=== PATIENT | female | born 1995 | race American Indian/Alaskan Native ===

== ENCOUNTER 2017-12-18 12:52 | Emergency (ER) | payer OTHER, MEDICAID, SELFPAY ==
--- NOTE | 2017-12-18 12:52 | DI.RAD.S_ITS ---
PROCEDURE: XR ANKLE LT MIN 3V INDICATIONS: left foot swelling probable fracture TECHNIQUE: 3 views of the ankle were acquired. COMPARISON: [facility], CR, XR FOOT LT MIN 3V, 12/18/2017, 12:43. FINDINGS: Bones: There is a subtle fracture of the base of the 5th metatarsal. No additional fractures are evident. Ankle mortise is normally aligned. No suspicious bony lesions. Soft tissues: No tibiotalar joint effusion. Achilles tendon appears normal. IMPRESSION: 5th metacarpal base fracture. Dictated by: Dinesh Palomino M.D. on 12/18/2017 at 12:47 Approved by: Dinesh Palomino M.D. on 12/18/2017 at 12:53
--- NOTE | 2017-12-18 12:52 | DI.RAD.S_ITS ---
PROCEDURE: XR FOOT LT MIN 3V INDICATIONS: left foot injury lateral swelling TECHNIQUE: 3 views of the foot were acquired. COMPARISON: [facility], CR, XR ANKLE LT MIN 3V, 12/18/2017, 12:43. FINDINGS: Bones: No fractures or dislocations. No suspicious bony lesions. Soft tissues: No tibiotalar joint effusion. Achilles tendon appears normal. IMPRESSION: No acute osseous abnormality of the left foot. Dictated by: Dinesh Palomino M.D. on 12/18/2017 at 12:40 Approved by: Dinesh Palomino M.D. on 12/18/2017 at 12:47
[2017-12-18 12:55] VITALS: BP 103/64; PULSE 73; RESP 14; TEMP 37.1; O2SAT 100
[2017-12-18 12:56] VITALS: BP 103/64; PULSE 73; RESP 14; TEMP 37.1; O2SAT 100; BMI 20.7
--- NOTE | 2017-12-18 13:00 | ED.LOWEXIN ---
HPI - Extremity Injury (Lower) General Chief Complaint: Extremity Injury, Lower Stated Complaint: Fell down steps Time Seen by Provider: 12/18/17 13:00 Source: patient and EMS Mode of arrival: EMS Limitations: no limitations History of Present Illness HPI Narrative: Patient is a 22-year-old female presenting with left foot pain. She says she fell down 3 or 4 stairs just prior to arrival. She has some swelling on the left side of her foot no ankle knee or hip pain. There is no bleeding no numbness or tingling. She is currently 6 weeks . complaint: foot injury Related Data Allergies Allergy/AdvReac Type Severity Reaction Status Date / Time No Known Drug Allergies Allergy Verified 12/18/17 12:56 Review of Systems Review of Systems GENERAL: Denies chills,fever HEENT: Denies throat pain RESPIRATORY: Denies dyspnea, cough, wheezing CARDIOVASCULAR: Denies chest pain, palpitations GASTROINTESTINAL: Denies nausea, vomiting MUSCULOSKELETAL: See HPI SKIN: No rash, no laceration, no pruritus NEUROLOGIC: Denies weakness, dizziness, headache, numbness 8 point review of systems is negative except for those stated above and HPI All systems reviewed & are unremarkable except as noted in HPI and below PFSH Social History Smoking Status: Never smoker Exam Initial Vital Signs Initial Vital Signs: Vital Signs Temperature 98.7 F 12/18/17 12:55 Pulse Rate 73 12/18/17 12:55 Respiratory Rate 14 12/18/17 12:55 Blood Pressure 103/64 12/18/17 12:55 Pulse Oximetry 100 12/18/17 12:55 GENERAL: Well-appearing, well-nourished and in no acute distress. CARDIOVASCULAR: peripheral pulses in tact, cap refill <2 sec RESPIRATORY: No respiratory distress, speaks in full sentences without difficulty EXTREMITIES: Normal range of motion, no clubbing or edema. Neurovascularly intact -left foot: Or lateral swelling distal pedal pulse intact warm no ankle deformity no knee deformity no hip pain. NEUROLOGICAL: Cranial nerves II through XII grossly intact. Normal gait and speech. SKIN: Warm, dry, no petechiae, no rashes or lesions. Course Orders Ordered: ED Orders 12/18/17 12:52 XR ankle LT min 3V Stat XR foot LT min 3V Stat Vital Signs - 8 hr 12/18/17 12:55 12/18/17 12:56 12/18/17 13:30 Temperature 98.7 F 98.7 F Pulse Rate 73 73 98 H Respiratory Rate 14 14 Blood Pressure 103/64 Blood Pressure [Right Arm] 103/64 102/58 L Pulse Oximetry 100 100 98 12/18/17 14:43 Temperature Pulse Rate 62 Respiratory Rate 18 Blood Pressure 99/68 Blood Pressure [Right Arm] Pulse Oximetry 99 MDM - Extremity Injury (Lower) Imaging Data ankle x ray: My impression: PROCEDURE: XR ANKLE LT MIN 3V INDICATIONS: left foot swelling probable fracture TECHNIQUE: 3 views of the ankle were acquired. COMPARISON: [facility], , XR FOOT LT MIN 3V, 12/18/2017, 12:43. FINDINGS: Bones: There is a subtle fracture of the base of the 5th metatarsal. No additional fractures are evident. Ankle mortise is normally aligned. No suspicious bony lesions. Soft tissues: No tibiotalar joint effusion. Achilles tendon appears normal. IMPRESSION: 5th metacarpal base fracture. Dictated by: Dinesh Palmoino M.D. on 12/18/2017 at 12:47 left foot x ray: Radiologist's impression: PROCEDURE: XR FOOT LT MIN 3V INDICATIONS: left foot injury lateral swelling TECHNIQUE: 3 views of the foot were acquired. COMPARISON: [facility], , XR ANKLE LT MIN 3V, 12/18/2017, 12:43. FINDINGS: Bones: No fractures or dislocations. No suspicious bony lesions. Soft tissues: No tibiotalar joint effusion. Achilles tendon appears normal. IMPRESSION: No acute osseous abnormality of the left foot. Discharge Plan Departure Patient Disposition: Home, Self-Care Clinical Impression: Fracture of fifth metacarpal bone Discharge Date/Time: 12/18/17 14:45 Interventions: ED Discharge Assessment Last Done: 12/18/17 14:43 Instructions: DI for Foot Fracture Activity Restrictions/Additional Instructions: *You have been diagnosed with a left 5th metacarpal fracture *What to do: This may require surgery. Keep shoe on while active. Use crutches. Ice 20-30 minutes at a time then removed for 30 min or more *Continue to take medications as directed-Tylenol 650 mg every 4-6 hours if needed for pain At your request you're medications have been faxed to *Follow up with your primary care provider in 2-3 days, call Orthopedics today to schedule follow-up appointment in the next 2-5 days *Return to ER if you should have increasing pain, numbness, tingling or any new, worsening or concerning symptoms Referrals: [facility] [Outside]
[2017-12-18 13:30] VITALS: BP 102/58; PULSE 98; O2SAT 98
[2017-12-18 14:43] VITALS: BP 99/68; PULSE 62; RESP 18; O2SAT 99
== END 2017-12-18 14:45 | disposition home or self-care (01) ==
PROVIDERS: Emergency Provider Emergency Medicine
DX: S92.352A Displaced fracture of fifth metatarsal bone, left foot, initial encounter for closed fracture (principal); W10.8XXA Fall (on) (from) other stairs and steps, initial encounter
CPT/HCPCS: 73610; 73630; 99283

== ENCOUNTER 2017-12-24 09:36 | Emergency (ER) | payer OTHER, MEDICAID, SELFPAY ==
[2017-12-24 09:54] VITALS: BP 125/110; PULSE 87; RESP 18; TEMP 36.7; O2SAT 100
--- NOTE | 2017-12-24 09:57 | PC.NURSE ---
7 weeks , , developed lower abdominal throbbing pain with vaginal discharge clear and white with chills and denies vomiting, denies injuries.
[2017-12-24 10:01] VITALS: BP 106/65
[2017-12-24 10:23] LABS: Appearance Urine UA CLOUDY; Bilirubin Urine UA NEGATIVE (NEGATIVE); Color Urine UA YELLOW; Glucose Urine UA NEGATIVE (Normal); Ketones Urine UA NEGATIVE (NEGATIVE); Leukocyte Esterase Urine UA 2+ (NEGATIVE); Nitrite Urine UA Negative (Negative); Occult Blood Urine UA NEGATIVE (Negative); Protein Urine UA NEGATIVE (Negative); Urobilinogen Urine UA 0.2 E.U./dL (0.2)
[2017-12-24 10:27] LABS: Pregnancy Test Urine Positive (Negative)
--- NOTE | 2017-12-24 10:30 | DI.US.S_ITS ---
PROCEDURE: US OB <= 14 WEEKS FETUS INDICATIONS: PAIN, DISCHARGE OUTSIDE/PRIOR DATING DATA: Last menstrual period (LMP): 11/04/17. LMP-based estimated date of delivery (BUFFY): 08/11/18. First dating scan (date and location): 12/24/17. Estimated date of delivery (BUFFY) from first dating scan: 08/10/18. TECHNIQUE: Real-time scanning was performed of the fetus and maternal pelvic organs, with image documentation. COMPARISON: None. FINDINGS: Embryo: Single intrauterine gestational sac is identified with a pole well-visualized that measures 1.1 cm in length, correlating to an estimated gestational age of 7 weeks 2 days (BUFFY of 08/10/18). heart motion is detected at 141 beats per minute. A yolk sac is well-visualized and appears to be within normal limits. No subchorionic hemorrhage is identified. Measurement variability in dating: +/- 4 weeks by LMP, +/- 7 days by mean sac diameter (use before 6 weeks gestation if crown-rump length not able to be measured), +/- 5 days by crown-rump length (up to 8 weeks 6 days gestation), +/- 7 days by crown-rump length (up to 13 weeks 6 days gestation). Maternal organs: Ovaries are within normal limits. Corpus luteum cyst appears to be present on the right. Limited images through the kidneys demonstrate no hydronephrosis. IMPRESSION: 1. Single live intrauterine at 7 weeks 2 days (BUFFY 08/10/18). 2. No subchorionic hemorrhage. Dictated by: Dinesh Palomino M.D. on 12/24/2017 at 11:24 Approved by: Dinesh Palomino M.D. on 12/24/2017 at 11:26
[2017-12-24 10:34] LABS: RBC Urine 0-1/HPF (0-5/HPF)
[2017-12-24 10:35] LABS: Add Manual Diff / Slide Review NO; Basophils Percent Auto 0.4 % (0-2); Eosinophils Percent Auto 0.8 % (2-4); Hematocrit 40.1 % (36-46); Hemoglobin 13.4 g/dL (12.0-16.0); Lymphocytes Percent Auto 19.8 % (25-40); Mean Corpuscular HGB Conc 33.4 % (30-36); Mean Corpuscular Hemoglobin 30.9 PG (26-34); Mean Corpuscular Volume 92.4 fL (80-100); Monocytes Percent Auto 6.6 % (3-14); Neutrophils Absolute Auto 6400 /uL (3000-5900); Neutrophils Percent Auto 72.4 % (50-75); Platelet Count 281 X10^3/uL (150-400); Red Blood Cell Count 4.34 X10^6/uL (4.0-5.2); Red Cell Distribution Width 13.6 % (11.6-14.8); White Blood Cell Count 8.9 X10^3/uL (4.5-11.0)
[2017-12-24 10:35] LABS: Amorphous Sediment Urine 2+; Bacteria Urine Many (>30); Culture Indicated Urine Cult Not Indicated; Squamous Epithelial Cell Urine 10-30 /HPF; WBC Urine 10-30/HPF (0-5/HPF)
--- NOTE | 2017-12-24 10:36 | PC.NURSE ---
mother at bs.
--- NOTE | 2017-12-24 10:36 | ED.PREGNANCY ---
HPI - General Chief complaint: OB/Uterine Contractions Stated complaint: with discharge Time Seen by Provider: 12/24/17 09:39 Source: patient Mode of arrival: ambulatory Limitations: no limitations History of Present Illness HPI Narrative: 22-year-old female presents to the emergency department with a chief complaint of an episode of pelvic discomfort this morning with clear discharge on her legs. She is a at 7 weeks and had been feeling fine until this morning. She denies fever, chills nor nausea or vomiting. MD Complaint: vaginal discharge Onset (ago): minute(s) Pain Consistency: now resolved Location: pelvis Severity: mild Quality: Aching and Burning Radiation: pelvis Relieving factors: none Exacerbating factors: none Associated symptoms: denies other symptoms Vaginal discharge: clear Vaginal bleeding: none Patient : Yes OB History - Current : no complications Related Data Home Medications Medication Instructions Recorded Confirmed PNV cmb#95-ferrous fumarate-FA 1 tab PO DAILY 12/24/17 12/24/17 [] Previous Rx's Medication Instructions Recorded nitrofurantoin macrocrystal 100 mg PO Q6H 7 Days #28 cap 12/24/17 Allergies Allergy/AdvReac Type Severity Reaction Status Date / Time No Known Drug Allergies Allergy Verified 12/18/17 12:56 Review of Systems Review of Systems All systems reviewed & are unremarkable except as noted in HPI and below Constitutional Denies chills, Denies fever(s), Denies lethargy and Denies weakness Eyes Denies change in vision, Denies eye discharge, Denies irritation and Denies loss of vision ENT Ears, Nose, Mouth, and Throat: Denies change in voice, Denies neck pain and Denies sore throat Cardiovascular Denies chest pain, Denies irregular heart rhythm, Denies lightheadedness, Denies palpitations, Denies dyspnea, Denies dyspnea on exertion and Denies orthopnea Respiratory Denies cough, Denies dyspnea, Denies dyspnea on exertion and Denies wheezing Gastrointestinal Gastrointestinal: Denies abdominal pain, Denies change in bowel habits, Denies diarrhea, Denies nausea and Denies vomiting Genitourinary Denies hematuria, Reports pelvic pain, Denies flank pain, Denies urinary incontinence, Denies urinary urgency and Reports vaginal discharge Musculoskeletal Denies neck pain Integumentary/Breasts Denies pruritus, Denies erythema, Denies rash and Denies wounds Neurologic Denies confusion, Denies loss of vision and Denies weakness Psychiatric Denies anxiety, Denies confusion, Denies depression, Denies homicidal ideation and Denies suicidal ideation Endocrine Denies palpitations Hematologic/Lymphatic Denies easy bruising Allergic/Immunologic Denies wheezing PMFSH - Past Medical History Medical history: Reports no medical history and non-contributory Surgical history: Reports no surgical history Patient : Yes Psychiatric history: Reports no psych history Family history: Reports no significant family history Exam Narrative Exam Narrative: 22-year-old female in no obvious distress Initial Vital Signs Initial Vital Signs: Vital Signs Temperature 98.0 F 12/24/17 09:54 Pulse Rate 87 12/24/17 09:54 Respiratory Rate 18 12/24/17 09:54 Blood Pressure 125/110 H 12/24/17 09:54 Pulse Oximetry 100 12/24/17 09:54 Const General: cooperative and well developed Nutritional Appearance: well nourished Orientation: alert, awake, oriented x3 and not confused Eyes General: appearance normal, both eyes and all related structures Eyelids: eyelids normal Conjunctivae: conjunctivae normal Sclera: sclerae normal Pupils: PERRL EOM: EOM intact bilaterally Resp Effort & Inspection: normal respiratory effort, able to speak in complete sentences, no respiratory distress and no use of accessory muscles Auscultation: clear to auscultation bilaterally, no rales, no rhonchi and no wheezes GI Inspection: non-distended Palpation: soft, no hepatosplenomegaly, No guarding, No pulsatile mass and No tender Auscultation: normal bowel sounds Back/Spine/Pelvis Back: No CVA tenderness Cervical Spine: cervical ROM normal and No pain with cervical ROM Thoracic/Lumbar Spine: thoracic and lumbar spine normal to inspection Skin General: no rashes or lesions noted, No jaundice and No petechiae Course Orders Ordered: ED Orders 12/24/17 10:00 Test Urine Stat UA Complete [Urinalysis and Microscopic] Stat Urine Chlamydia Gonorrhea PCR Stat 12/24/17 10:30 US OB <= 14 weeks fetus Stat Vital Signs - 8 hr 12/24/17 11:34 12/24/17 12:15 12/24/17 13:30 Pulse Rate 82 83 89 Respiratory Rate 15 14 14 Blood Pressure [Right Arm] 101/68 101/69 92/64 Pulse Oximetry 100 100 100 12/24/17 14:07 Pulse Rate 82 Respiratory Rate 12 Blood Pressure [Right Arm] 105/64 Pulse Oximetry 100 MDM - OB/Uterine Contractions Medical Records Attestation: I reviewed the patient's medical records. Lab Data Attestation: I reviewed the patient's lab results. Result diagrams: 12/24/17 09:00 12/24/17 09:00 Lab Results 12/24/17 12/24/17 12/24/17 Range/Units 09:00 09:00 10:00 WBC 8.9 (4.5-11.0) X10^3/uL RBC 4.34 (4.0-5.2) X10^6/uL Hgb 13.4 (12.0-16.0) g/dL Hct 40.1 (36-46) % MCV 92.4 (80-100) fL MCH 30.9 (26-34) PG MCHC 33.4 (30-36) % RDW 13.6 (11.6-14.8) % Plt Count 281 (150-400) X10^3/uL Neut % (Auto) 72.4 (50-75) % Lymph % (Auto) 19.8 L (25-40) % [place] % (Auto) 6.6 (3-14) % Eos % (Auto) 0.8 L (2-4) % Baso % (Auto) 0.4 (0-2) % Neut # (Auto) 6400 H (5079-9091) /uL Sodium 139 (137-145) mmol/L Potassium 3.9 (3.4-5.1) mmol/L Chloride 102 (98-107) mmol/L Carbon Dioxide 26 (22-32) mmol/L BUN 7 (7-17) mg/dL Creatinine 0.40 L (0.52-1.04) mg/dL Estimated GFR > 60.0 (>60) mL/min BUN/Creatinine Ratio 17.5 (6-22) Glucose 92 (70-100) mg/dL Calcium 9.4 (8.4-10.2) mg/dL HCG, Quant 24279 mIU/mL Urine Color Urine Appearance Urine pH (4.5-8.0) Ur Specific [place] (1.000-1.035) Urine Protein (Negative) Urine Glucose (UA) (Normal) g/dL Urine Ketones (NEGATIVE) Urine Occult Blood (Negative) Urine Nitrate (Negative) Urine Bilirubin (NEGATIVE) Urine Urobilinogen (0.2) E.U./dL Ur Leukocyte Esterase (NEGATIVE) Urine RBC (0-5/HPF) Urine WBC (0-5/HPF) Ur Squamous Epith Cells Amorphous Sediment Urine Bacteria (None) Ur Culture Indicated? Micro UA Comment Urine Test Positive H (Negative) Ur Chlamydia DNA (PCR) N gonorrhoeae DNA (PCR) 12/24/17 12/24/17 Range/Units 10:00 10:00 WBC (4.5-11.0) X10^3/uL RBC (4.0-5.2) X10^6/uL Hgb (12.0-16.0) g/dL Hct (36-46) % MCV (80-100) fL MCH (26-34) PG MCHC (30-36) % RDW (11.6-14.8) % Plt Count (150-400) X10^3/uL Neut % (Auto) (50-75) % Lymph % (Auto) (25-40) % [place] % (Auto) (3-14) % Eos % (Auto) (2-4) % Baso % (Auto) (0-2) % Neut # (Auto) (8901-1658) /uL Sodium (137-145) mmol/L Potassium (3.4-5.1) mmol/L Chloride (98-107) mmol/L Carbon Dioxide (22-32) mmol/L BUN (7-17) mg/dL Creatinine (0.52-1.04) mg/dL Estimated GFR (>60) mL/min BUN/Creatinine Ratio (6-22) Glucose (70-100) mg/dL Calcium (8.4-10.2) mg/dL HCG, Quant mIU/mL Urine Color Yellow Urine Appearance Cloudy Urine pH 8.0 (4.5-8.0) Ur Specific [place] 1.020 (1.000-1.035) Urine Protein Negative (Negative) Urine Glucose (UA) Negative (Normal) g/dL Urine Ketones Negative (NEGATIVE) Urine Occult Blood Negative (Negative) Urine Nitrate Negative (Negative) Urine Bilirubin Negative (NEGATIVE) Urine Urobilinogen 0.2 (0.2) E.U./dL Ur Leukocyte Esterase 2+ H (NEGATIVE) Urine RBC 0-1/hpf (0-5/HPF) Urine WBC 10-30/hpf H (0-5/HPF) Ur Squamous Epith Cells 10-30 /hpf H Amorphous Sediment 2+ Urine Bacteria Many (>30) H (None) Ur Culture Indicated? Cult not indicated Micro UA Comment Not Reportable Urine Test (Negative) Ur Chlamydia DNA (PCR) Not detected N gonorrhoeae DNA (PCR) Not detected Imaging Data US - abdomen: Radiologist's impression: PROCEDURE: US OB <= 14 WEEKS FETUS INDICATIONS: PAIN, DISCHARGE OUTSIDE/PRIOR DATING DATA: Last menstrual period (LMP): 11/04/17. LMP-based estimated date of delivery (BUFFY): 08/11/18. First dating scan (date and location): 12/24/17. Estimated date of delivery (BUFFY) from first dating scan: 08/10/18. TECHNIQUE: Real-time scanning was performed of the fetus and maternal pelvic organs, with image documentation. COMPARISON: None. FINDINGS: Embryo: Single intrauterine gestational sac is identified with a pole well-visualized that measures 1.1 cm in length, correlating to an estimated gestational age of 7 weeks 2 days (BUFFY of 08/10/18). heart motion is detected at 141 beats per minute. A yolk sac is well-visualized and appears to be within normal limits. No subchorionic hemorrhage is identified. Measurement variability in dating: +/- 4 weeks by LMP, +/- 7 days by mean sac diameter (use before 6 weeks gestation if crown-rump length not able to be measured), +/- 5 days by crown-rump length (up to 8 weeks 6 days gestation), +/- 7 days by crown-rump length (up to 13 weeks 6 days gestation). Maternal organs: Ovaries are within normal limits. Corpus luteum cyst appears to be present on the right. Limited images through the kidneys demonstrate no hydronephrosis. IMPRESSION: 1. Single live intrauterine at 7 weeks 2 days (BUFFY 08/10/18). 2. No subchorionic hemorrhage. Dictated by: Dinesh Palomino M.D. on 12/24/2017 at 11:24 Approved by: Dinesh Palomino M.D. on 12/24/2017 at 11:26 Discharge Plan Departure Patient Disposition: Home, Self-Care Clinical Impression: UTI (urinary tract infection) Discharge Date/Time: 12/24/17 14:09 Interventions: ED Discharge Assessment Last Done: 12/24/17 14:08 Instructions: DI for Urinary Tract Infection (UTI) Activity Restrictions/Additional Instructions: *You have been diagnosed with [ urinary tract infection ] *What to do: *Take medications as directed *Follow up with your primary care provider in 2-3 days *Return to ER if you should have any new, worsening or concerning symptoms Prescriptions: New nitrofurantoin macrocrystal 100 mg capsule 100 mg PO Q6H 7 Days Qty: 28 RF: 0 No Action PNV cmb#95-ferrous fumarate-FA [] 28 mg iron- 800 mcg Tablet 1 tab PO DAILY RF: 0
[2017-12-24 10:41] LABS: BUN Creatinine Ratio 17.5 (6-22); Blood Urea Nitrogen 7 mg/dL (7-17); Calcium 9.4 mg/dL (8.4-10.2); Carbon Dioxide 26 mmol/L (22-32); Chloride 102 mmol/L (98-107); Estimated Glomerular Filt Rate > 60.0 mL/min (>60); Glucose 92 mg/dL (70-100); HEMOLYSIS < 15 (0-50); Potassium 3.9 mmol/L (3.4-5.1); Sodium 139 mmol/L (137-145)
[2017-12-24 11:22] LABS: HCG Quantitative /Beta subunit 57143 mIU/mL
[2017-12-24 11:34] VITALS: BP 101/68; PULSE 82; RESP 15; O2SAT 100
[2017-12-24 12:15] VITALS: BP 101/69; PULSE 83; RESP 14; O2SAT 100
[2017-12-24 13:30] VITALS: BP 92/64; PULSE 89; RESP 14; O2SAT 100
[2017-12-24 14:07] VITALS: BP 105/64; PULSE 82; RESP 12; O2SAT 100
--- NOTE | 2017-12-24 14:09 | PC.NURSE ---
infused 1 liter ns from ems.
[2017-12-24 14:39] LABS: Urine Chlamydia NOT DETECTED; Urine N gonorrhoeae NOT DETECTED
== END 2017-12-24 14:09 | disposition home or self-care (01) ==
PROVIDERS: Emergency Provider Emergency Medicine
DX: N39.0 Urinary tract infection, site not specified (principal)
CPT/HCPCS: 76801; 76817; 80048; 81001; 81025; 84702; 85025; 87491; 87591; 99283; 99284

== ENCOUNTER 2018-07-03 01:09 | Emergency (ER) | payer OTHER, MEDICAID, SELFPAY ==
[2018-07-03 01:19] VITALS: BP 118/61; PULSE 100; RESP 19; TEMP 35.9; O2SAT 99; BMI 22.8
--- NOTE | 2018-07-03 01:19 | DI.RAD.S_ITS ---
PROCEDURE: XR HIP W PEL IF DONE LT 2V INDICATIONS: fall with severe hip/pelvis pain, 8 months TECHNIQUE: AP pelvis with lateral view(s) of the left hip(s). COMPARISON: None. FINDINGS: Bones: No fractures or dislocations. Pelvic ring appears intact. No suspicious bony lesions. Soft tissues: The visualized bowel gas pattern is normal. No suspicious soft tissue calcifications. Note is made of an IUP with a fetus in cephalic presentation. IMPRESSION: 1. No fracture or dislocation. 2. There is a fetus in cephalic presentation. Dictated by: Ravin Sawant M.D. on 07/03/2018 at 9:06 Approved by: Ravin Sawant M.D. on 07/03/2018 at 9:08
--- NOTE | 2018-07-03 01:44 | ED.FALL ---
HPI - Fall General Chief Complaint: Fall Stated Complaint: 8 mos , fall, left leg pain Time Seen by Provider: 07/03/18 01:11 Source: patient and EMS Mode of arrival: EMS Limitations: no limitations History of Present Illness HPI Narrative: 22F 8 months presents with EMS after a fall from standing which results in significant L hip and pelvic pain. She denies landing on her belly. She's had no vaginal bleeding or discharge. She denies other injury. She slid down a few stairs in doing so. Her pain is worse with motion and improves with rest. MD complaint: fall Onset (ago): minute(s) Fall from: standing Fall witnessed: no Place fall occurred: home Loss of consciousness: none Prolonged down time: no Symptoms prior to fall: none Context: tripped/slipped Location of injury: pelvis Related Data Home Medications Medication Instructions Recorded Confirmed PNV cmb#95-ferrous fumarate-FA 1 tab PO DAILY 12/24/17 12/24/17 [] Allergies Allergy/AdvReac Type Severity Reaction Status Date / Time No Known Drug Allergies Allergy Verified 12/18/17 12:56 Review of Systems Review of Systems All systems reviewed & are unremarkable except as noted in HPI and below Constitutional Denies chills, Denies fever(s), Denies lethargy and Denies weakness Eyes Denies change in vision, Denies eye discharge, Denies irritation and Denies loss of vision ENT Ears, Nose, Mouth, and Throat: Denies change in voice, Denies neck pain and Denies sore throat Cardiovascular Denies chest pain, Denies irregular heart rhythm, Denies lightheadedness, Denies palpitations, Denies dyspnea, Denies dyspnea on exertion and Denies orthopnea Respiratory Denies cough, Denies dyspnea, Denies dyspnea on exertion and Denies wheezing Gastrointestinal Gastrointestinal: Denies abdominal pain, Denies change in bowel habits, Denies diarrhea, Denies nausea and Denies vomiting Genitourinary Denies hematuria, Denies flank pain, Denies urinary incontinence and Denies urinary urgency Musculoskeletal Denies neck pain Integumentary/Breasts Denies pruritus, Denies erythema, Denies rash and Denies wounds Neurologic Denies confusion, Denies loss of vision and Denies weakness Psychiatric Denies anxiety, Denies confusion, Denies depression, Denies homicidal ideation and Denies suicidal ideation Endocrine Denies palpitations Hematologic/Lymphatic Denies easy bruising Allergic/Immunologic Denies wheezing Exam Narrative Exam Narrative: GENERAL: This is a well-nourished, well-developed patient, in mild distress. GCS 15 HEAD: Atraumatic. Normocephalic. No temporal or scalp tenderness. EYES: Pupils equal round and reactive. Extraocular motions intact. No scleral icterus. No injection or drainage. ENT: Nose without bleeding, purulent drainage or septal hematoma. Throat without erythema, tonsillar hypertrophy or exudate. Uvula midline. Airway patent. NECK: Trachea midline. No JVD or lymphadenopathy. Supple, nontender, no meningeal signs. CARDIOVASCULAR: Regular rate and rhythm without murmurs, gallops, or rubs. RESPIRATORY: Clear to auscultation. Breath sounds equal bilaterally. No wheezes, rales, or rhonchi. GASTROINTESTINAL: Abdomen soft, gravid uterus. No obvious external injury. EXTREMITIES: No clubbing, cyanosis, or edema. No effusion, or edema noted. L hip pain with active ROM, none with Passive ROM. No contusion, brusing or swelling to medial thigh. No external manifestation of injury BACK: Nontender without deformity or crepitance. No flank tenderness. NEURO: AOx3. SKIN: No rash or erythema. Initial Vital Signs Initial Vital Signs: Vital Signs Temperature 96.7 F L 07/03/18 01:19 Pulse Rate 100 H 07/03/18 01:19 Respiratory Rate 19 07/03/18 01:19 Blood Pressure 118/61 07/03/18 01:19 Pulse Oximetry 99 07/03/18 01:19 [facility] Social History Smoking Status: Never smoker Course Orders Ordered: ED Orders 07/03/18 01:19 XR hip w pel if done LT 2V Stat Reevaluation(s) Reevaluation #1: Patient will be sent to and D for monitoring to ensure safety baby. The patient may need crutches for safe ambulation but we will get her set up upon release from L and D Vital Signs - 8 hr 07/03/18 01:19 07/03/18 02:34 Temperature 96.7 F L 98.7 F Pulse Rate 100 H 106 H Respiratory Rate 19 17 Blood Pressure 118/61 Pulse Oximetry 99 96 MDM - Fall Imaging Data Hip / Pelvis: Radiologist's impression: No fracture MDM Narrative Medical decision making narrative: patient with normal xray and very reassuring exam. She has no pain on passive ROM, but complains of pain with active ROM. No obvious explanation of pain. Patient evaluated in LD with toco and US and no abnormalities noted Discharge Plan Departure Patient Disposition: Home Clinical Impression: Contusion of hip Discharge Date/Time: 07/03/18 02:35 Interventions: ED Discharge Assessment Last Done: 07/03/18 02:34 Instructions: DI for Contusion Activity Restrictions/Additional Instructions: please proceed directly to LD for monitoring Prescriptions: No Action PNV cmb#95-ferrous fumarate-FA [] 28 mg iron- 800 mcg Tablet 1 tab PO DAILY RF: 0
[2018-07-03 02:34] VITALS: PULSE 106; RESP 17; TEMP 37.1; O2SAT 96
== END 2018-07-03 02:35 | disposition home or self-care (01) ==
PROVIDERS: Emergency Provider Emergency Medicine
DX: S70.02XA Contusion of left hip, initial encounter (principal); W18.30XA Fall on same level, unspecified, initial encounter
CPT/HCPCS: 73502; 99282; 99283

== ENCOUNTER 2018-07-03 02:34 | Outpatient (CLI) | payer OTHER, MEDICAID, SELFPAY ==
--- NOTE | 2018-07-03 06:51 | PM.OBTRLD ---
Visit Information Visit Information Date of evaluation: 07/03/18 On-call OB Provider: Shiela Huang Reason for Evaluation: Yes non-stress test Comments/Additional reasons for admission: Patient fell and was evaluated in the emergency room came in for monitoring of the fetus Vital Signs Vital Signs: Blood pressure 102/59, pulse 92, temperature 98.2? [facility] Social History Smoking Status: Never smoker Review of Systems Review of Systems Patient denies leakage of fluid, contractions, noted good movement. No abdominal pain. No vaginal bleeding. All systems reviewed & are unremarkable except as noted in HPI and below Evaluation Evaluation Baseline heart rate: 140 Variability: Moderate (11-25) monitor accelerations: Present monitor decelerations: Absent Diagnosis, Plan/Disposition Final Diagnosis (1) Third trimester at less than 36 weeks: Current Visit: Yes Status: Acute (2) Contusion of hip: Current Visit: No Status: Acute Plan/Disposition Plan: Reactive nonstress test patient is reassured she is to to return if she has bleeding, painful contractions, decreased movement, rupture of membranes.
--- NOTE | 2018-07-03 06:54 | P.TNLD_ITS ---
Visit Information Visit Information Date of evaluation: 07/03/18 On-call OB Provider: Shiela Huang Reason for Evaluation: Yes non-stress test Comments/Additional reasons for admission: Patient fell and was evaluated in the emergency room came in for monitoring of the fetus Vital Signs Vital Signs: Blood pressure 102/59, pulse 92, temperature 98.2? [facility] Social History Smoking Status: Never smoker Review of Systems Review of Systems Patient denies leakage of fluid, contractions, noted good movement. No abdominal pain. No vaginal bleeding. All systems reviewed & are unremarkable except as noted in HPI and below Evaluation Evaluation Baseline heart rate: 140 Variability: Moderate (11-25) monitor accelerations: Present monitor decelerations: Absent Diagnosis, Plan/Disposition Final Diagnosis (1) Third trimester at less than 36 weeks: Current Visit: Yes Status: Acute (2) Contusion of hip: Current Visit: No Status: Acute Plan/Disposition Plan: Reactive nonstress test patient is reassured she is to to return if she has bleeding, painful contractions, decreased movement, rupture of membranes.
== END 2018-07-03 03:40 | disposition home or self-care (01) ==
LOC: LABOR 09:35 → OB 07-09 08:38
PROVIDERS: Visit Provider Specialist
DX: O26.893 Other specified pregnancy related conditions, third trimester (principal); W19.XXXA Unspecified fall, initial encounter; S70.00XA Contusion of unspecified hip, initial encounter; Z3A.34 34 weeks gestation of pregnancy
CPT/HCPCS: 59025; G0378; G0379